=== PATIENT | male | born 1960 | race Caucasian/White ===

== ENCOUNTER → 2017-06-20 | Outpatient (CLI) | payer BC ==
[~2017-06-20] MED LIST: ASPEC81 PO; CHOLTAB3 PO; MULT-506 PO; OMEG10007 PO; POMEGRANITE
--- NOTE | 2017-06-20 11:33 | DIAGNOSTIC IMAGING REPORT ---
[facility] CLINICAL HISTORY: B07.9 right-sided nephrolithiasis [id number] COMPARISON STUDY: 01/10/2010 FINDINGS: There is no pathologic bowel dilatation. There are suspected punctate lower pole left renal calculi. There is a new 4 mm right pelvic basin calcification. A distal right ureteral calculus cannot be excluded. Please correlate with patient's symptoms. IMPRESSION: 1. No evidence of pathologic bowel dilatation 2. New nonspecific 4 mm right pelvic basin calcification. 3. Suspected punctate lower pole left renal calculi Electronically signed by: Corey Johns M.D. 06/20/2017 11:32 AM Dictated Date/Time: 06/20/2017 11:30 AM
== END | disposition home or self-care (01) ==
LOC: C.RAD 10:57
PROVIDERS: ATTEND Urology
DX: B07.9 Viral wart, unspecified (principal); R93.5 Abnormal findings on diagnostic imaging of other abdominal regions, including retroperitoneum

== ENCOUNTER → 2017-09-19 | Outpatient (CLI) | payer OTHER | END | disposition home or self-care (01) | LOC: C.PATHSPEC 17:11 | PROVIDERS: ATTEND Urology | DX: A63.0 Anogenital (venereal) warts (principal) ==